=== PATIENT | male | born 1945 | race African-American/Black ===

== ENCOUNTER 2020-08-18 04:30 | Emergency (ER) | payer OTHER, MEDICAID ==
[~2020-08-18] VITALS: Ht 188 cm; Wt 74.0 kg
[2020-08-18] MEDS ORDERED: AMOX-424 PO (05:44)
[2020-08-18 06:08] VITALS: BP 139/80
== END 2020-08-18 06:24 | disposition home or self-care (01) ==
LOC: ER 04:30
DX: K05.10 Chronic gingivitis, plaque induced (principal); E11.9 Type 2 diabetes mellitus without complications; F03.90 Unspecified dementia, unspecified severity, without behavioral disturbance, psychotic disturbance, mood disturbance, and anxiety
CPT/HCPCS: 99283